=== PATIENT | female | born 1945 | race Caucasian/White ===

== ENCOUNTER 2016-06-06 10:59 | Outpatient (CLI) ==
[2016-06-06 11:15] VITALS: BP 125/67; TEMP 96.7
[2016-06-06] MEDS ORDERED: PROLIA SUBCUT STA (11:16)
== END 2016-06-06 11:00 | disposition home or self-care (01) ==
LOC: OPMED 10:59
PROVIDERS: ATTEND Internal Medicine
DX: M81.0 Age-related osteoporosis without current pathological fracture (principal)
CPT/HCPCS: 96372; 99211

== ENCOUNTER 2017-01-11 08:36 | Outpatient (CLI) ==
[2017-01-11] MEDS ORDERED: PROLIA SUBCUT STA (09:00)
[2017-01-11 09:07] VITALS: BP 115/66; TEMP 98.2
--- NOTE | 2017-01-12 11:52 | MAMMO ---
EXAM: Bilateral digital screening mammogram (2-D and 3-D) History: Screening Comparison: Bilateral mammogram 12/08/2015 Findings: MLO and CC views of bilateral breasts demonstrate scattered fibroglandular breast parenchy ma. CAD was reviewed by the radiologist. Tomosynthesis was performed. Stable benign bilateral [address] calcifications. There are no dominant masses, no suspicious microcalcifications and no architectu ral distortions. Impression: Benign stable mammogram. Recommend followup routine screening mammography in 1 year. BIRADS 2
== END 2017-01-11 08:37 | disposition home or self-care (01) ==
LOC: OPMED 08:36
PROVIDERS: ATTEND Internal Medicine
DX: Z12.31 Encounter for screening mammogram for malignant neoplasm of breast (principal); M81.0 Age-related osteoporosis without current pathological fracture
CPT/HCPCS: 77067; 96372

== ENCOUNTER 2017-07-16 08:16 | Outpatient (CLI) ==
[2017-07-16] MEDS ORDERED: PROLIA SUBCUT STA (08:36)
[2017-07-16 08:40] VITALS: BP 115/64; TEMP 98.2
== END 2017-07-16 08:17 | disposition home or self-care (01) ==
LOC: OPMED 08:16
PROVIDERS: ATTEND Internal Medicine
DX: M81.0 Age-related osteoporosis without current pathological fracture (principal)
CPT/HCPCS: 96372

== ENCOUNTER 2018-01-17 12:57 | Outpatient (CLI) ==
[2018-01-17] MEDS ORDERED: PROLIA SUBCUT STA (13:36)
[2018-01-17 13:42] VITALS: BP 115/64; TEMP 98.4
--- NOTE | 2018-01-17 13:57 | DEXA ---
EXAM: Bone densitometry. History: Osteoporosis. Findings: Evaluation of the lumbar spine reveals a total bone mineral density of 0.746 grams per centimeter squ ared with T-score of negative 3.6. Evaluation of the left hip reveals a total bone mineral density of 0.748 grams per centimeter squared with T-score of negative 2.1. Evaluation of the right hip reveals a total bone mineral density of 0.738 grams per centimeter square d with T-score of negative 2.1 Impression: 1. Osteoporosis of the lumbar spine. 2. Osteopenia of bilateral hips
--- NOTE | 2018-01-18 10:06 | MAMMO ---
EXAM: Bilateral digital screening mammogram (2-D and 3-D) History: Screening Comparison: Bilateral mammogram 01/11/2017 Findings: MLO and CC views of bilateral breasts demonstrate scattered fibroglandular breast parenchy ma. CAD was reviewed by the radiologist. Tomosynthesis was performed. Stable benign bilateral ri[address] st calcifications. There are no dominant masses, no suspicious microcalcifications and no architectu ral distortions Impression: Benign stable mammogram. Recommend followup routine screening mammography in 1 year. BIRADS 2
== END 2018-01-17 12:58 | disposition home or self-care (01) ==
LOC: RAD 12:57 → OPMED 12:58
PROVIDERS: ATTEND Internal Medicine
DX: Z12.31 Encounter for screening mammogram for malignant neoplasm of breast (principal); M81.0 Age-related osteoporosis without current pathological fracture
CPT/HCPCS: 96372

== ENCOUNTER 2018-07-25 09:25 | Outpatient (CLI) ==
[2018-07-25 09:42] VITALS: BP 130/68; TEMP 98
[2018-07-25] MEDS ORDERED: PROLIA SUBCUT STA (09:45)
== END 2018-07-25 09:26 | disposition home or self-care (01) ==
LOC: OPMED 09:25
PROVIDERS: ATTEND Internal Medicine
DX: M81.0 Age-related osteoporosis without current pathological fracture (principal)
CPT/HCPCS: 96372